=== PATIENT | female | born 1975 | race African-American/Black ===

== ENCOUNTER 2016-09-28 22:35 | Emergency (ER) | payer SELFPAY ==
[2016-09-28 22:41] VITALS: BMI 25.8
[2016-09-28] MEDS ORDERED: ALPRAZolam 0.25 MG TABLET PO ONE (22:55)
[2016-09-28] MEDS ORDERED: ALPRAZolam 0.25 MG TABLET ONE (23:03)
[2016-09-28] MEDS ORDERED: FAMOTIDINE 20 MG/50 ML IVPB 50 ML IVPB ONE ×2 (23:07→23:21)
[2016-09-28] MEDS ORDERED: SODIUM CHLORIDE 0.9% 1000 ML INFUS.BAG IV ONE (23:07)
[2016-09-28] MEDS ORDERED: ONDANSETRON 4 MG/2 ML VIAL IVPUSH ONE (23:07)
[2016-09-28] MEDS ORDERED: ONDANSETRON 4 MG/2 ML VIAL ONE (23:21)
[2016-09-28 23:26] LABS: MCH 31.2 pg (25.7-33.7); MEAN CELL VOLUME 94.4 fl (80-96); MEAN PLT VOLUME 8.2 fl (7.5-11.1); PLATELET COUNT 290 K/MM3 (134-434); RDW 13.8 % (11.6-15.6); WHITE BLOOD COUNT 4.9 K/mm3 (4.0-10.0)
[2016-09-28 23:40] LABS: URINE APPEARANCE CLEAR; URINE BILIRUBIN NEGATIVE (NEGATIVE); URINE COLOR STRAW; URINE GLUCOSE (UA) NEGATIVE (NEGATIVE); URINE KETONE NEGATIVE (NEGATIVE); URINE LEUK ESTERASE NEGATIVE (NEGATIVE); URINE NITRITE NEGATIVE (NEGATIVE); URINE PROTEIN NEGATIVE (NEGATIVE); URINE UROBILINOGEN NEGATIVE E.U./dl (0.2-1.0)
[2016-09-28 23:42] LABS: URINE BLOOD 1+ (NEGATIVE)
[2016-09-28 23:44] LABS: URINE BACTERIA RARE /hpf (NONE SEEN); URINE MUCUS RARE; URINE RBC 1 /hpf (0-3)
[2016-09-28 23:50] LABS: ALBUMIN 4.2 g/dl (3.4-5.0); ANION GAP 8 (8-16); BILIRUBIN,TOTAL 0.3 mg/dL (0.2-1.0); CALCIUM 9.3 mg/dL (8.5-10.1); CO2 31 mmol/L (21-32); CREATININE 0.8 mg/dL (0.55-1.02); GLUCOSE,RANDOM 116 mg/dL (74-106); SGOT/AST 17 U/L (15-37); SGPT/ALT 19 U/L (12-78); TOT PROT 7.7 g/dl (6.4-8.2)
[2016-09-28 23:51] LABS: ALK PHOS 54 U/L (45-117); TROPONIN I < 0.02 ng/ml (0.00-0.05)
--- NOTE | 2016-09-29 00:21 | PDOC ---
History of Present Illness - General Chief Complaint: Nausea/Vomiting Stated Complaint: NAUSEA/LOSS OF APPETITE Time Seen by Provider: 09/28/16 22:53 - History of Present Illness Initial Comments: 09/29/16 00:27 CHIEF COMPLAINT: not feeling well HISTORY OF PRESENT ILLNESS: 41 yo F with hx of SVT presents to ED with concerns that she "has not been feeling well." She denies any URI symptoms, fever, vomiting, diarrhea, or abdominal pain. She denies any chest pain, shortness of breath, but does report feeling palpitations at this time. No recent travel or sick contacts. PAST MEDICAL HISTORY: Denies past medical history FAMILY HISTORY: Denies SOCIAL HISTORY:Denies tobacco, alcohol, illicit drug use. SURGICAL HISTORY: Denies ALLERGIES: No known drug allergies REVIEW OF SYSTEMS General/Constitutional: Denies fever or chills. Denies weakness, weight change. HEENT: Denies change in vision. Denies ear pain or discharge. Denies sore throat. Cardiovascular: Denies chest pain or shortness of breath. Respiratory: Denies cough, wheezing, or hemoptysis. Gastrointestinal: Denies nausea, vomiting, diarrhea or constipation. Denies rectal bleeding. Genitourinary: Denies dysuria, frequency, or change in urination. Musculoskeletal: Denies joint or muscle swelling or pain. Denies neck or back pain. Skin and breasts: Denies rash or easy bruising. PHYSICAL EXAM General Appearance: Well-appearing, appropriately dressed. No apparent distress , no intoxication. HEENT: EOMI, PERRLA, normal ENT inspection, normal voice, TMs normal, pharynx normal. No conjunctival pallor. No photophobia, scleral icterus. Respiratory/Chest: Lungs CTAB. Cardiovascular: Tachycardic to 145. RRR. S1, S2. Musculoskeletal/Extremities: Normal inspection. FROM of all extremities, normal capillary refill. Pelvis Stable. No CVA tenderness. No tenderness to extremities, pedal edema, swelling, erythema or deformity. Integumentary: Appropriate color, dry, warm. No cyanosis, erythema, jaundice or rash Neurologic: corporate events director II-XII intact. Fully oriented, alert. Appropriate mood/affect. Motor strength 5/5. No appreciable EOM palsy, facial droop or sensory deficit. 10/03/16 05:14 Past History - Past Medical History Allergies/Adverse Reactions: Allergies Allergy/AdvReac Type Severity Reaction Status Date / Time No Known Allergies Allergy Verified 09/28/16 22:41 Home Medications: Ambulatory Orders Alprazolam [Xanax] 0.25 mg PO DAILY PRN #7 tablet MDD 1 09/29/16 Famotidine [Pepcid] 20 mg PO BID #14 tablet 09/29/16 Cardiac Disorders: Yes (tachycardia) HTN: Yes - Psycho/Social/Smoking Cessation Hx Suicidal Ideation: No Smoking History: Never smoked *Physical Exam - Vital Signs Last Vital Signs Temp Pulse Resp BP Pulse Ox 98.1 F 142 H 20 167/105 100 09/28/16 22:38 09/28/16 22:38 09/28/16 22:38 09/28/16 22:38 09/28/16 22:38 ED Treatment Course - LABORATORY CBC & Chemistry Diagram: 09/28/16 23:14 09/28/16 23:14 - ADDITIONAL ORDERS Additional order review: Laboratory Results 09/28/16 09/28/16 09/28/16 23:30 23:14 23:14 Sodium Potassium Chloride Carbon Dioxide Anion Gap BUN Creatinine Creat Clearance w eGFR Random Glucose Calcium Total Bilirubin AST ALT Alkaline Phosphatase Creatine Kinase 190 CK-MB (CK-2) < 1.000 Troponin I < 0.02 Total Protein Albumin Lipase Serum , Qual Negative Urine Color Straw Urine Appearance Clear Urine pH 6.0 Urine Protein Negative Urine Glucose (UA) Negative Urine Ketones Negative Urine Blood 1+ H Urine Nitrite Negative Urine Bilirubin Negative Urine Urobilinogen Negative Ur Leukocyte Esterase Negative Urine RBC 1 Urine WBC None Ur Epithelial Cells Rare Urine Bacteria Rare Urine Mucus Rare 09/28/16 23:14 Sodium 139 Potassium 4.1 Chloride 100 Carbon Dioxide 31 Anion Gap 8 BUN 8 Creatinine 0.8 Creat Clearance w eGFR > 60 Random Glucose 116 H Calcium 9.3 Total Bilirubin 0.3 AST 17 ALT 19 Alkaline Phosphatase 54 Creatine Kinase CK-MB (CK-2) Troponin I Total Protein 7.7 Albumin 4.2 Lipase 184 Serum , Qual Urine Color Urine Appearance Urine pH Urine Protein Urine Glucose (UA) Urine Ketones Urine Blood Urine Nitrite Urine Bilirubin Urine Urobilinogen Ur Leukocyte Esterase Urine RBC Urine WBC Ur Epithelial Cells Urine Bacteria Urine Mucus 09/28/16 23:14 RBC 4.23 MCV 94.4 MCHC 33.0 RDW 13.8 MPV 8.2 - Medications Given in the ED: ED Medications Discontinued Medications Generic Name Dose Route Start Last Admin Trade Name Ivánq PRN Reason Stop Dose Admin Alprazolam 0.25 mg 09/28/16 22:55 09/28/16 23:17 Xanax - PO 09/28/16 22:56 0.25 mg ONCE ONE Administration Famotidine/Sodium Chloride 50 mls @ 100 mls/hr 09/28/16 23:07 09/28/16 23:32 Pepcid 20 Mg Premixed Ivpb - IVPB 09/28/16 23:36 100 mls/hr ONCE ONE Administration Ondansetron HCl 4 mg 09/28/16 23:07 09/28/16 23:32 Zofran Injection IVPUSH 09/28/16 23:08 4 mg ONCE ONE Administration Sodium Chloride 1,000 ml 09/28/16 23:07 09/28/16 23:32 Normal Saline - IV 09/28/16 23:08 1,000 ml ONCE ONE Administration Medical Decision Making - Medical Decision Making 41 yo F with hx of SVT presents to ED with concerns that she "has not been feeling well." -CBC, CMP, cardiac profile, TSH, lipase -EKG, CXR -UA, UCx EKG - sinus tachycardia Labs unremarkable. Patient reports feeling nauseous. -Pepcid, Zofran, IVF Patient given 0.25 Xanax for anxiety. Patient reassessed; states she is feeling much better at this time. Repeat HR WNL. Xanax rx sent to pharm. Advised patient to f/u with PMD upon return to home state. Patient verbalized understanding and agrees to plan. *DC/Admit/Observation/Transfer Diagnosis at time of Disposition: Tachycardia, Anxiety - Discharge Dispostion Disposition: HOME Condition at time of disposition: Stable Admit: No - Prescriptions Prescriptions: Famotidine [Pepcid] 20 mg PO BID #14 tablet Alprazolam [Xanax] 0.25 mg PO DAILY PRN #7 tablet MDD 1 PRN Reason: Anxiety - Patient Instructions Printed Discharge Instructions: DI for Gastroesophageal Reflux Disease (GERD) Additional Instructions: Please follow up with a travel physical therapist as discussed. If you experience any shortness of breath, headache, chest pain, vomiting, diarrhea, fever, or any new or worsening symptoms, please return to the ER.
[2016-09-29 00:22] VITALS: BP 125/84; PULSE 83; TEMP 97.8
--- NOTE | 2016-09-29 00:37 | PDOC ---
*Physical Exam - Vital Signs Last Vital Signs Temp Pulse Resp BP Pulse Ox 97.8 F 78 17 120/91 100 09/29/16 00:20 09/29/16 00:20 09/29/16 00:20 09/29/16 00:20 09/29/16 00:20 - Physical Exam Comments: 09/29/16 00:36 The patient was examined by [EDDIE Leyva] under my direct supervision. I personally evaluated the patient. I concur with the above findings and the plan of care. ED Treatment Course - LABORATORY CBC & Chemistry Diagram: 09/28/16 23:14 09/28/16 23:14 - ADDITIONAL ORDERS Additional order review: Laboratory Results 09/28/16 09/28/16 09/28/16 23:30 23:14 23:14 Sodium Potassium Chloride Carbon Dioxide Anion Gap BUN Creatinine Creat Clearance w eGFR Random Glucose Calcium Total Bilirubin AST ALT Alkaline Phosphatase Creatine Kinase 190 CK-MB (CK-2) < 1.000 Troponin I < 0.02 Total Protein Albumin Lipase Serum , Qual Negative Urine Color Straw Urine Appearance Clear Urine pH 6.0 Urine Protein Negative Urine Glucose (UA) Negative Urine Ketones Negative Urine Blood 1+ H Urine Nitrite Negative Urine Bilirubin Negative Urine Urobilinogen Negative Ur Leukocyte Esterase Negative Urine RBC 1 Urine WBC None Ur Epithelial Cells Rare Urine Bacteria Rare Urine Mucus Rare 09/28/16 23:14 Sodium 139 Potassium 4.1 Chloride 100 Carbon Dioxide 31 Anion Gap 8 BUN 8 Creatinine 0.8 Creat Clearance w eGFR > 60 Random Glucose 116 H Calcium 9.3 Total Bilirubin 0.3 AST 17 ALT 19 Alkaline Phosphatase 54 Creatine Kinase CK-MB (CK-2) Troponin I Total Protein 7.7 Albumin 4.2 Lipase 184 Serum , Qual Urine Color Urine Appearance Urine pH Urine Protein Urine Glucose (UA) Urine Ketones Urine Blood Urine Nitrite Urine Bilirubin Urine Urobilinogen Ur Leukocyte Esterase Urine RBC Urine WBC Ur Epithelial Cells Urine Bacteria Urine Mucus 09/28/16 23:14 RBC 4.23 MCV 94.4 MCHC 33.0 RDW 13.8 MPV 8.2 - Medications Given in the ED: ED Medications Discontinued Medications Generic Name Dose Route Start Last Admin Trade Name Freq PRN Reason Stop Dose Admin Alprazolam 0.25 mg 09/28/16 22:55 09/28/16 23:17 Xanax - PO 09/28/16 22:56 0.25 mg ONCE ONE Administration Famotidine/Sodium Chloride 50 mls @ 100 mls/hr 09/28/16 23:07 09/28/16 23:32 Pepcid 20 Mg Premixed Ivpb - IVPB 09/28/16 23:36 100 mls/hr ONCE ONE Administration Ondansetron HCl 4 mg 09/28/16 23:07 09/28/16 23:32 Zofran Injection IVPUSH 09/28/16 23:08 4 mg ONCE ONE Administration Sodium Chloride 1,000 ml 09/28/16 23:07 09/28/16 23:32 Normal Saline - IV 09/28/16 23:08 1,000 ml ONCE ONE Administration *DC/Admit/Observation/Transfer Diagnosis at time of Disposition: Tachycardia, Anxiety - Discharge Dispostion Disposition: HOME Condition at time of disposition: Stable - Prescriptions Prescriptions: Famotidine [Pepcid] 20 mg PO BID #14 tablet Alprazolam [Xanax] 0.25 mg PO DAILY PRN #7 tablet MDD 1 PRN Reason: Anxiety - Referrals - Patient Instructions Printed Discharge Instructions: DI for Gastroesophageal Reflux Disease (GERD) Additional Instructions: Please follow up with a dip filler as discussed. If you experience any shortness of breath, headache, chest pain, vomiting, diarrhea, fever, or any new or worsening symptoms, please return to the ER. - Post Discharge Activity
[2016-09-29 02:28] LABS: THYROID STIMULATING HORMONE 3.96 uIU/ml (0.358-3.74)
--- NOTE | 2016-09-30 13:49 | EKG ---
Test Reason : Blood Pressure : / mmHG Vent. Rate : 124 BPM Atrial Rate : 124 BPM P-R Int : 156 ms QRS Dur : 084 ms QT Int : 324 ms P-R-T Axes : 053 033 033 degrees QTc Int : 465 ms SINUS TACHYCARDIA RSR' OR QR PATTERN IN V1 SUGGESTS RIGHT VENTRICULAR CONDUCTION DELAY ABNORMAL ECG NO PREVIOUS ECGS AVAILABLE Confirmed by MAYELA MENDEZ MD ([id number]) on 09/30/2016 1:49:08 PM Referred By: Confirmed By:MAYELA MENDEZ MD
== END 2016-09-29 00:37 | disposition home or self-care (01) ==
LOC: JER 22:35
PROC: 3E033GC Introduction of Other Therapeutic Substance into Peripheral Vein, Percutaneous Approach (ICD-10-PCS; principal; 2016-09-28)
DX: I97.89 Other postprocedural complications and disorders of the circulatory system, not elsewhere classified (principal); I47.1 Supraventricular tachycardia; I10 Essential (primary) hypertension
CPT/HCPCS: 36415; 80053; 81003; 81015; 82550; 82553; 83690; 84443; 84484; 84703; 85027; 87086; 93005; 93010; 99283-25